=== PATIENT | male | born 1945 | race Caucasian/White ===

== ENCOUNTER 2018-08-06 09:15 | Emergency (ER) | payer MEDICARE, OTHER ==
[~2018-08-06] VITALS: Ht 180.3 cm; Wt 90.9 kg
[~2018-08-06 09:15] MED LIST: ASPI-1265 PO; CLON-529 PO; DOXY100T2 PO; NIFE60TA83 PO; PREN-139 PO; PROM25TA14 PO
[2018-08-06 09:24] VITALS: BP 133/57
[2018-08-06] MEDS ORDERED: HYDROcodone/acetaminophen 5mg/325mg tablet PO ONE ×2 (10:10→11:15)
[2018-08-06] MEDS ORDERED: LIDOcaine 1% 30ml preserv. free vial IJ ONE ×2 (10:45→11:25)
[2018-08-06] MEDS ORDERED: HYDR-3965 PO (12:29)
[2018-08-19] MEDS ORDERED: SIMV10TA2 PO (15:04)
[2018-08-19] MEDS ORDERED: POTASSIUM (15:04)
[2018-08-19] MEDS ORDERED: TUMERIC (15:04)
[2018-08-19] MEDS ORDERED: LISI1TAB13 PO (15:04)
[2018-08-19] MEDS ORDERED: MULT-933 PO (15:04)
[2018-08-19] MEDS ORDERED: GLUCOSAMINE (15:04)
== END 2018-08-06 13:00 | disposition home or self-care (01) ==
LOC: ER 09:15
DX: S52.591A Other fractures of lower end of right radius, initial encounter for closed fracture (principal); S52.611A Displaced fracture of right ulna styloid process, initial encounter for closed fracture; I10 Essential (primary) hypertension; Z88.0 Allergy status to penicillin; Z79.82 Long term (current) use of aspirin; Z79.899 Other long term (current) drug therapy; W01.198A Fall on same level from slipping, tripping and stumbling with subsequent striking against other object, initial encounter; Y93.89 Activity, other specified; Y92.89 Other specified places as the place of occurrence of the external cause; Y99.9 Unspecified external cause status
CPT/HCPCS: 29125; 73100; 73110; 99283; J3490

== ENCOUNTER 2018-08-13 09:03 | Outpatient (CLI) | payer MEDICARE, OTHER ==
[2018-08-13 09:17] VITALS: BP 110/56
== END 2018-08-13 10:17 | disposition home or self-care (01) ==
LOC: ORTHO 09:03
PROVIDERS: ATTEND Nurse Practitioner Family
DX: S52.591A Other fractures of lower end of right radius, initial encounter for closed fracture (principal); S52.614A Nondisplaced fracture of right ulna styloid process, initial encounter for closed fracture; I10 Essential (primary) hypertension; E78.00 Pure hypercholesterolemia, unspecified; I25.2 Old myocardial infarction; G47.30 Sleep apnea, unspecified; Z79.82 Long term (current) use of aspirin; Z88.0 Allergy status to penicillin; Z87.891 Personal history of nicotine dependence; W19.XXXA Unspecified fall, initial encounter; Y93.89 Activity, other specified; Y92.89 Other specified places as the place of occurrence of the external cause; Y99.8 Other external cause status
CPT/HCPCS: 73110; G0463

== ENCOUNTER 2018-08-21 12:46 | Day surgery (SDC) | payer MEDICARE, OTHER ==
[2018-08-19 15:24] LABS: BASOPHILS # (AUTO) 0.1 X10'3 (0-0.2); BASOPHILS % (AUTO) 0.7 % (0-1); EOSINOPHILS # (AUTO) 0.1 X10'3 (0-0.9); EOSINOPHILS % (AUTO) 1.9 % (0-6); LYMPHOCYTES # (AUTO) 2.3 X10'3 (1.1-4.8); LYMPHOCYTES % (AUTO) 31.1 % (21-51); MEAN CORPUSCULAR HEMOGLOBIN 29.8 PG (27.0-31.0); MEAN CORPUSCULAR HGB CONC 33.4 g/dL (33.0-36.5); MEAN CORPUSCULAR VOLUME 89.2 FL (78-98); MEAN PLATELET VOLUME 7.5 FL (7.4-10.4); MONOCYTES # (AUTO) 0.9 X10'3 (0-0.9); MONOCYTES % (AUTO) 11.5 % (2-12); NEUTROPHILS # (AUTO) 4.1 X10'3 (1.8-7.7); NEUTROPHILS % (AUTO) 54.8 % (42-75); PRE OP HEMATOCRIT 40.7 % (42.0-52.0); PRE OP HEMOGLOBIN 13.6 g/dL (14.0-17.9); PRE OP PLATELET COUNT 349 X10'3 (140-440); RED BLOOD COUNT 4.56 X10'6 (4.70-6.10); RED CELL DISTRIBUTION WIDTH 12.8 % (11.5-14.5)
[2018-08-19 15:46] LABS: ALBUMIN 3.7 G/DL (3.4-5.0); ALKALINE PHOSPHATASE 116 IU/L (46-116); BLOOD UREA NITROGEN 24 MG/DL (7-18); BUN/CREATININE RATIO 24.5 (5.4-32.0); CALCIUM 9.7 MG/DL (8.5-10.1); CHLORIDE 102 MMOL/L (99-107); CREATININE 0.98 MG/DL (0.60-1.10); PRE OP ALT 38 U/L (30-65); PRE OP ANION GAP 6 (8-16); PRE OP AST 28 U/L (10-37); PRE OP BILIRUB, TOTAL 0.2 MG/DL (0.0-1.0); PRE OP GLUCOSE 110 MG/DL (70-104); PRE OP SODIUM 137 MMOL/L (135-145); TOTAL CARBON DIOXIDE 28.6 MMOL/L (24-32); TOTAL PROTEIN 7.5 G/DL (6.4-8.2); eGFR 75 ML/MIN
[2018-08-21] VITALS (7 sets, daily range): BP systolic 139–153; BP diastolic 73–80
[~2018-08-21] VITALS: Ht 180.3 cm; Wt 95.3 kg
[~2018-08-21 12:46] MED LIST changes: +CLINDAmcin 900mg/NS 50ml IVPB 50 ML IV ONE; -CLON-529 PO; -DOXY100T2 PO; +LISI1TAB13 PO; +MULT-933 PO; -PREN-139 PO; +PRENATAL ONE T1 EACH PO; -PROM25TA14 PO; +SIMV10TA2 PO; +clindamycin-Cleocin 900mg/D5W 50 ML IV ONE; +famotidine 20mg tablet PO ONE; +ringers solution, lacted 1,000 ML IV SCH; +vancomycin inj 1,500 MG in normal saline 300ml IV soln IV ONE
[2018-08-21] MEDS ORDERED: ringers solution, lacted 1,000 ML IV SCH (13:44)
[2018-08-21] MEDS ORDERED: proCHLORperazine 10 MG/2 ml inj IV PRN (13:45)
[2018-08-21] MEDS ORDERED: meperidine/PF 25mg/ml syringe IV PRN ×3 (13:45)
[2018-08-21] MEDS ORDERED: ondansetron/PF 4mg/2ml inj IV PRN (13:45)
[2018-08-21] MEDS ORDERED: morphine 4 MG/ML inj SYRINge IV PRN ×2 (13:45)
[2018-08-21] MEDS ORDERED: bacitracin 15gm ointment TP ONE (14:00)
[2018-08-21] MEDS ORDERED: BUPIVAcaine/PF 2.5mg/ml (0.25%) 10ml vial ONE (14:01)
[2018-08-21] MEDS ORDERED: MIDAZolam 5mg/5ml vial ONE (15:28)
[2018-08-21] MEDS ORDERED: ROPIVAcaine 0.5% (5mg/ml) 30ml vial ONE (15:28)
[2018-08-21] MEDS ORDERED: fentaNYL/PF 50MCG/1 ML 2ML syringe ONE (15:28)
[2018-08-21] MEDS ORDERED: propofol 10mg/ml 20ml vial IV ONE (15:45)
[2018-08-21] MEDS ORDERED: LIDOcaine 1%/PF 5ML 10 MG/ML VIAL ONE (15:45)
[2018-08-21] MEDS ORDERED: desflurane 240ml liquid inh. IH ONE (15:45)
--- NOTE | 2018-08-21 17:25 | NUR ---
Received from OR via BED , accompanied by Anesthesiologist and report given by Anesthesiolgist. PATIENT WAKING UP, DENIES PAIN, V/S WNL, NEUROVASCULAR CHECKS INTACT, 20G PIV LUE , SPLINT/DRESSING TO RIGHT FOREARM CDI W/ COLD POWDER PACK AND W/ SCD ON.
--- NOTE | 2018-08-21 18:15 | NUR ---
PATIENT A&OX4, DENIES PAIN, V/S WNL, NEUROVASCULAR CHECKS INTACT, 20G PIV LUE D/C , SPLINT/DRESSING TO RIGHT FOREARM CDI W/ SLING AND COLD POWDER PACK AND W/ SCD OFF .I HAVE REVIEWED D/C INSTRUCTIONS WITH PATIENT AND FAMILY AND THEY HAVE VERBALIZED UNDERSTANDING. PATIENT GIVEN PAIN MEDS BY DANIKA PATIENT D/C HOME WITH ALL BELONGINGS AND FAMILY GAVE TRANSPORT HOME
== END 2018-08-21 18:15 | disposition home or self-care (01) ==
LOC: PAS 12:46
PROVIDERS: ATTEND Orthopaedic Surgery
DX: S52.591A Other fractures of lower end of right radius, initial encounter for closed fracture (principal); X58.XXXA Exposure to other specified factors, initial encounter; Y93.9 Activity, unspecified; Y92.9 Unspecified place or not applicable; Y99.9 Unspecified external cause status; Z88.0 Allergy status to penicillin; Z79.82 Long term (current) use of aspirin; I25.2 Old myocardial infarction; E78.00 Pure hypercholesterolemia, unspecified; G47.30 Sleep apnea, unspecified; F32.9 Major depressive disorder, single episode, unspecified; Z98.84 Bariatric surgery status
CPT/HCPCS: 25607; 36415; 71046; 73502; 80053; 82948; 85025; 93005; A6449; C1713; J2001; J2250; J2704; J3010; J3370; J3490; A7000; J2795; J7120

== ENCOUNTER 2019-01-06 15:02 | Emergency (ER) | payer MEDICARE, OTHER ==
[~2019-01-06] VITALS: Ht 180.3 cm; Wt 77.0 kg
[~2019-01-06 15:02] MED LIST changes: -CLINDAmcin 900mg/NS 50ml IVPB 50 ML IV ONE; -LISI1TAB13 PO; +LISI1TAB29 PO; -clindamycin-Cleocin 900mg/D5W 50 ML IV ONE; -famotidine 20mg tablet PO ONE; -ringers solution, lacted 1,000 ML IV SCH; -vancomycin inj 1,500 MG in normal saline 300ml IV soln IV ONE
[2019-01-06 15:50] LABS: BASOPHILS # (AUTO) 0.1 X10'3 (0-0.2); BASOPHILS % (AUTO) 0.5 % (0-1); EOSINOPHILS # (AUTO) 0.2 X10'3 (0-0.9); EOSINOPHILS % (AUTO) 1.7 % (0-6); HEMATOCRIT 28.8 % (42.0-52.0); HEMOGLOBIN 9.8 g/dl (14.0-17.9); LYMPHOCYTES # (AUTO) 2.1 X10'3 (1.1-4.8); LYMPHOCYTES % (AUTO) 19.6 % (21-51); MEAN CORPUSCULAR HGB CONC 34.2 g/dL (33.0-36.5); MEAN CORPUSCULAR VOLUME 90.7 FL (78-98); MEAN PLATELET VOLUME 7.5 FL (7.4-10.4); MONOCYTES % (AUTO) 9.5 % (2-12); NEUTROPHILS # (AUTO) 7.2 X10'3 (1.8-7.7); NEUTROPHILS % (AUTO) 68.7 % (42-75); PLATELET COUNT 325 X10'3 (140-440); RED BLOOD COUNT 3.17 X10'6 (4.70-6.10); RED CELL DISTRIBUTION WIDTH 13.2 % (11.5-14.5); WHITE BLOOD COUNT 10.5 X10'3 (4.5-11.0)
[2019-01-06 15:57] LABS: PARTIAL THROMBOPLASTIN TIME 32 SECONDS (22-32)
[2019-01-06 16:00] LABS: ALANINE AMINOTRANSFERASE 24 U/L (12-78); ALBUMIN 3.3 G/DL (3.4-5.0); ALBUMIN/GLOBULIN RATIO 0.9 (1.1-1.5); ALKALINE PHOSPHATASE 89 IU/L (46-116); ANION GAP 5 (8-16); ASPARTATE AMINO TRANSFERASE 15 U/L (10-37); BILIRUBIN,TOTAL 0.3 MG/DL (0.1-1.0); BLOOD UREA NITROGEN 40 MG/DL (7-18); BUN/CREATININE RATIO 36.4 (5.4-32.0); CALCIUM 8.7 MG/DL (8.5-10.1); CHLORIDE 103 MMOL/L (99-107); GLUCOSE 118 MG/DL (70-104); POTASSIUM 4.6 MMOL/L (3.5-5.1); SODIUM 136 MMOL/L (135-145); TOTAL CARBON DIOXIDE 27.6 MMOL/L (24-32); TOTAL PROTEIN 6.9 G/DL (6.4-8.2); eGFR 65 ML/MIN
[2019-01-06] MEDS ORDERED: pantoprazole 40mg Tablet.DR PO ONE (16:10)
[2019-01-06] MEDS ORDERED: acetaminophen 325mg tablet PO ONE (16:10)
[2019-01-06] MEDS ORDERED: famotidine 20mg tablet PO ONE (16:10)
[2019-01-06 16:34] LABS: CLARITY,URINE CLEAR (Clear); COLOR,URINE YELLOW (Yellow); GLUCOSE, URINE NEGATIVE (Neg); KETONES,URINE NEGATIVE (Neg); LEUKOCYTE ESTERASE ,URINE NEGATIVE (Neg); NITRITES, URINE NEGATIVE (Neg); OCCULT BLOOD,URINE NEGATIVE (Neg); PROTEIN,URINE NEGATIVE (Neg); UROBILINOGEN,URINE 0.2 E.U/dL (0.2-1.0)
[2019-01-06 16:36] LABS: UA COLLECTION TYPE URINAL
[2019-01-06 16:58] VITALS: BP 115/60
[2019-01-06] MEDS ORDERED: PANT-47 PO (17:09)
== END 2019-01-06 17:18 | disposition home or self-care (01) ==
LOC: ER 15:03
DX: R07.89 Other chest pain (principal); M54.5 Low back pain; E78.00 Pure hypercholesterolemia, unspecified; I10 Essential (primary) hypertension; I25.2 Old myocardial infarction; G47.30 Sleep apnea, unspecified; F32.9 Major depressive disorder, single episode, unspecified; Z88.0 Allergy status to penicillin; Z79.82 Long term (current) use of aspirin; Z79.899 Other long term (current) drug therapy
CPT/HCPCS: 36415; 71045; 80053; 81003; 84484; 85025; 85610; 85730; 93005; 99284

== ENCOUNTER 2020-12-14 16:00 | Emergency (ER) | payer MEDICARE, OTHER ==
[~2020-12-14] VITALS: Ht 180.3 cm; Wt 70.0 kg
[~2020-12-14 16:00] MED LIST changes: +PANT-47 PO
[2020-12-14 16:23] VITALS: BP 106/53
== END 2020-12-14 22:12 | disposition left against medical advice (07) ==
LOC: ER 16:00
DX: I10 Essential (primary) hypertension (principal); Z53.21 Procedure and treatment not carried out due to patient leaving prior to being seen by health care provider; R42 Dizziness and giddiness
CPT/HCPCS: 93005

== ENCOUNTER 2021-05-14 09:30 | Inpatient (IN) | payer MEDICARE, OTHER ==
[~2021-05-14] VITALS: Ht 180.3 cm; Wt 76.5 kg
[~2021-05-14 09:30] MED LIST changes: -LISI1TAB29 PO; +LISI1TAB53 PO
[2021-05-14 09:57] LABS: BASOPHILS % (AUTO) 0.8 % (0-1); EOSINOPHILS # (AUTO) 0.1 X10'3 (0-0.9); EOSINOPHILS % (AUTO) 1.7 % (0-6); HEMATOCRIT 37.4 % (42.0-52.0); HEMOGLOBIN 12.5 g/dl (14.0-17.9); LYMPHOCYTES # (AUTO) 1.9 X10'3 (1.1-4.8); LYMPHOCYTES % (AUTO) 32.5 % (21-51); MEAN CORPUSCULAR HEMOGLOBIN 30.1 PG (27.0-31.0); MEAN CORPUSCULAR HGB CONC 33.4 g/dL (33.0-36.5); MEAN CORPUSCULAR VOLUME 90.1 FL (78-98); MEAN PLATELET VOLUME 7.3 FL (7.4-10.4); MONOCYTES # (AUTO) 0.6 X10'3 (0-0.9); NEUTROPHILS # (AUTO) 3.2 X10'3 (1.8-7.7); PLATELET COUNT 264 X10'3 (140-440); RED BLOOD COUNT 4.15 X10'6 (4.70-6.10); RED CELL DISTRIBUTION WIDTH 15.9 % (11.5-14.5); WHITE BLOOD COUNT 5.8 X10'3 (4.5-11.0)
[2021-05-14] MEDS ORDERED: aspirin 81mg tab.chew PO ONE (10:00)
[2021-05-14 10:10] LABS: ALANINE AMINOTRANSFERASE 22 U/L (12-78); ALBUMIN 3.5 G/DL (3.4-5.0); ALBUMIN/GLOBULIN RATIO 1.1 (1.1-1.5); ALKALINE PHOSPHATASE 72 IU/L (46-116); ANION GAP 9 (8-16); ASPARTATE AMINO TRANSFERASE 26 U/L (10-37); BILIRUBIN,TOTAL 0.5 MG/DL (0.1-1.0); BLOOD UREA NITROGEN 12 MG/DL (7-18); BUN/CREATININE RATIO 10.3 (5.4-32.0); CALCIUM 9.4 MG/DL (8.5-10.1); CHLORIDE 105 MMOL/L (99-107); CREATININE 1.16 MG/DL (0.60-1.10); GLUCOSE 106 MG/DL (70-104); POTASSIUM 4.7 MMOL/L (3.5-5.1); SODIUM 139 MMOL/L (135-145); TOTAL CARBON DIOXIDE 25.4 MMOL/L (24-32); TOTAL PROTEIN 6.8 G/DL (6.4-8.2); eGFR 61 ML/MIN
[2021-05-14] MEDS ORDERED: acetaminophen 325mg tablet PO PRN ×2 (11:15)
[2021-05-14] MEDS ORDERED: HYDROcodone/acetaminophen 10/325mg tab PO PRN (11:15)
[2021-05-14] MEDS ORDERED: NIFEdipine XL 30mg tablet PO ONE (11:15)
[2021-05-14] MEDS ORDERED: PERFLUTREN PROTEIN-A MICROSPHR (Optison) 0.22 MG/ML 3ML VIAL IV PRN (11:15)
[2021-05-14] MEDS ORDERED: magnesium 4gm in 100ml NS 100 ML IV PRN (11:15)
[2021-05-14] MEDS ORDERED: potassium Cl 20 mEq SR tablet PO PRN ×2 (11:15)
[2021-05-14] MEDS ORDERED: HYDROcodone/acetaminophen 5mg/325mg tablet PO PRN (11:15)
[2021-05-14] MEDS ORDERED: ondansetron/PF 4mg/2ml inj IV PRN (11:15)
[2021-05-14] MEDS ORDERED: potassium CL 10mEq/100ml bag 100 ML IV PRN (11:15)
[2021-05-14] MEDS ORDERED: magnesium 2GM in 50ml NS 50 ML IV PRN (11:15)
[2021-05-14] MEDS ORDERED: GABA300C PO (11:30)
[2021-05-14] MEDS ORDERED: ROSU40TA22 PO (11:30)
[2021-05-14] MEDS ORDERED: LISI20TA28 PO (11:54)
[2021-05-14 15:00] VITALS: BP 127/60
[2021-05-14 18:00] VITALS: BP 124/64
[2021-05-14] MEDS: docusate sod 100mg capsule PO SCH (19:43)
[2021-05-14] MEDS: K and/or MAG REPLACEMENT MC SCH (19:48)
[2021-05-14] MEDS ORDERED: enoxaparin 40mg/0.4ml syringe SQ SCH (20:00)
[2021-05-14 22:00] VITALS: BP 105/58
[2021-05-15 02:00] VITALS: BP 107/54
[2021-05-15 06:00] VITALS: BP 106/51
[2021-05-15 06:52] LABS: BASOPHILS % (AUTO) 0.9 % (0-1); EOSINOPHILS # (AUTO) 0.1 X10'3 (0-0.9); EOSINOPHILS % (AUTO) 2.4 % (0-6); HEMATOCRIT 31.5 % (42.0-52.0); HEMOGLOBIN 10.9 g/dl (14.0-17.9); LYMPHOCYTES # (AUTO) 1.6 X10'3 (1.1-4.8); MEAN CORPUSCULAR HEMOGLOBIN 30.7 PG (27.0-31.0); MEAN CORPUSCULAR HGB CONC 34.5 g/dL (33.0-36.5); MEAN PLATELET VOLUME 7.9 FL (7.4-10.4); MONOCYTES # (AUTO) 0.5 X10'3 (0-0.9); NEUTROPHILS # (AUTO) 2.5 X10'3 (1.8-7.7); NEUTROPHILS % (AUTO) 51.7 % (42-75); PLATELET COUNT 210 X10'3 (140-440); RED BLOOD COUNT 3.53 X10'6 (4.70-6.10); RED CELL DISTRIBUTION WIDTH 15.4 % (11.5-14.5); WHITE BLOOD COUNT 4.8 X10'3 (4.5-11.0)
[2021-05-15 07:08] LABS: ALANINE AMINOTRANSFERASE 19 U/L (12-78); ALBUMIN 2.8 G/DL (3.4-5.0); ALKALINE PHOSPHATASE 61 IU/L (46-116); ANION GAP 7 (8-16); ASPARTATE AMINO TRANSFERASE 17 U/L (10-37); BILIRUBIN,TOTAL 0.4 MG/DL (0.1-1.0); BLOOD UREA NITROGEN 11 MG/DL (7-18); BUN/CREATININE RATIO 12.5 (5.4-32.0); CALCIUM 8.5 MG/DL (8.5-10.1); CHLORIDE 104 MMOL/L (99-107); CREATININE 0.88 MG/DL (0.60-1.10); GLUCOSE 90 MG/DL (70-104); MAGNESIUM 1.7 MG/DL (1.5-2.4); POTASSIUM 4.3 MMOL/L (3.5-5.1); SODIUM 140 MMOL/L (135-145); TOTAL CARBON DIOXIDE 28.7 MMOL/L (24-32); TOTAL PROTEIN 5.7 G/DL (6.4-8.2); eGFR 84 ML/MIN
[2021-05-15] MEDS: K and/or MAG REPLACEMENT MC SCH (08:00)
[2021-05-15] MEDS: docusate sod 100mg capsule PO SCH (08:25)
[2021-05-15] MEDS ORDERED: PANT-47 PO (10:48)
[2021-05-15] MEDS ORDERED: gabapentin 300mg capsule PO PRN (10:50)
--- NOTE | 2021-05-15 11:28 | NUR ---
Problems reprioritized. Patient report given, questions answered & plan of care reviewed with Elder CAN .
[2021-05-16] MEDS ORDERED: lisinopril 20mg tablet PO SCH (08:00)
[2021-05-16] MEDS ORDERED: atorvastatin 20mg tablet PO SCH (08:00)
== END 2021-05-15 13:50 | disposition home or self-care (01) | DRG 384 ==
LOC: ER 09:30 → ED HOLD 11:17 → PCU 3S 14:29
PROVIDERS: ADMIT Family Medicine; ATTEND Family Medicine
DX: K25.9 Gastric ulcer, unspecified as acute or chronic, without hemorrhage or perforation (principal); E78.00 Pure hypercholesterolemia, unspecified; E78.5 Hyperlipidemia, unspecified; G47.33 Obstructive sleep apnea (adult) (pediatric); F32.A Depression, unspecified; I10 Essential (primary) hypertension; Z96.652 Presence of left artificial knee joint; Z80.0 Family history of malignant neoplasm of digestive organs; Z80.42 Family history of malignant neoplasm of prostate; Z87.11 Personal history of peptic ulcer disease; I25.2 Old myocardial infarction; Z87.891 Personal history of nicotine dependence; Z98.84 Bariatric surgery status; Z79.899 Other long term (current) drug therapy; Z88.0 Allergy status to penicillin; Z79.82 Long term (current) use of aspirin
CPT/HCPCS: 36415; 71045; 80053; 83735; 83880; 84484; 85025; 93005; 93306; 99285; G0378; J1650; J2405

== ENCOUNTER 2021-08-19 18:41 | Emergency (ER) | payer MEDICARE, OTHER ==
[~2021-08-19] VITALS: Ht 180.3 cm; Wt 68.0 kg
[~2021-08-19 18:41] MED LIST changes: -ASPI-1265 PO; +GABA300C PO; -LISI1TAB53 PO; +LISI20TA28 PO; -MULT-933 PO; -NIFE60TA83 PO; -PRENATAL ONE T1 EACH PO; +ROSU40TA22 PO; -SIMV10TA2 PO
[2021-08-19 19:52] VITALS: BP 168/63
[2021-08-19] MEDS ORDERED: SULF1TAB49 PO (21:19)
[2021-08-19] MEDS ORDERED: acetaminophen 325mg tablet PO ONE (21:20)
[2021-08-19] MEDS ORDERED: sulfamethoxazole/trimethoprim DS (800/160mg) tablet PO ONE (21:20)
[2021-08-19] MEDS ORDERED: ondansetron 4mg rapidly disintigrating tab PO ONE (21:20)
== END 2021-08-19 21:33 | disposition home or self-care (01) ==
LOC: ER 18:41
DX: S01.511A Laceration without foreign body of lip, initial encounter (principal); E78.00 Pure hypercholesterolemia, unspecified; I10 Essential (primary) hypertension; I25.2 Old myocardial infarction; G47.30 Sleep apnea, unspecified; Z87.81 Personal history of (healed) traumatic fracture; Z72.89 Other problems related to lifestyle; Z88.0 Allergy status to penicillin; Z79.899 Other long term (current) drug therapy; W22.8XXA Striking against or struck by other objects, initial encounter; Y93.H2 Activity, gardening and landscaping; Y92.89 Other specified places as the place of occurrence of the external cause; Y99.8 Other external cause status
CPT/HCPCS: 99283; 99284

== ENCOUNTER 2024-06-29 11:56 | Emergency (ER) | payer MEDICARE, OTHER ==
[~2024-06-29] VITALS: Ht 175.3 cm; Wt 86.4 kg
[~2024-06-29 11:56] MED LIST changes: -ROSU40TA22 PO; +ROSU40TA89 PO
[2024-06-29] MEDS: oxyCODONE IR 5mg (immed. release) tablet PO ONE (13:13)
[2024-06-29] MEDS: morphine 4 MG/ML inj SYRINge IV ONE (14:31)
[2024-06-29] MEDS ORDERED: NAPR-56 PO (14:57)
[2024-06-29] MEDS ORDERED: CYCL-1 PO (14:57)
[2024-06-29 15:09] VITALS: BP 150/87; PULSE 61; O2SAT 98
[2024-06-29 15:15] VITALS: RESP 16
[2024-06-29] MEDS: ketorolac trometh 15mg/ml vial 15 MG/ML ML IM ONE (15:15)
[2024-06-29 15:18] VITALS: TEMP 97.3
== END 2024-06-29 16:55 | disposition home or self-care (01) ==
LOC: ER 11:57
DX: M54.59 Other low back pain (principal); R22.9 Localized swelling, mass and lump, unspecified; F32.A Depression, unspecified; E78.00 Pure hypercholesterolemia, unspecified; I10 Essential (primary) hypertension; G47.30 Sleep apnea, unspecified; I25.2 Old myocardial infarction; Z88.0 Allergy status to penicillin; Z79.899 Other long term (current) drug therapy; Z98.890 Other specified postprocedural states; W01.0XXA Fall on same level from slipping, tripping and stumbling without subsequent striking against object, initial encounter; Y93.89 Activity, other specified; Y92.89 Other specified places as the place of occurrence of the external cause; Y99.8 Other external cause status
CPT/HCPCS: 72131; 74176; 96372; 96374; 99285; J1885; J2270

== ENCOUNTER 2025-05-15 16:23 | Emergency (ER) | payer MEDICARE, OTHER ==
[~2025-05-15] VITALS: Ht 180.3 cm; Wt 85.5 kg
[~2025-05-15 16:23] MED LIST changes: +CYCL-1 PO
[2025-05-15 16:27] VITALS: BP 146/70; PULSE 80; RESP 16; O2SAT 96
--- NOTE | 2025-05-15 16:33 | Physician Documentation ---
History of Present Illness Chief Complaint: Abdominal Pain Stated Complaint: ABDOMINAL PAIN Time Seen by MD: 16:32 Primary Medical Doctor: DR ENGLISH Source: patient Mode of Arrival: POV Exam Limitations: no limitations HPI 79-year-old male with abdominal pain that is starts at the epigastric region and radiates downward for the past 3 weeks. Patient states pain is worse with eating. Patient states that at times the pain does radiate to his back. Medication Reconciliation Allergies: Coded Allergies: Penicillins (Verified Allergy, Mild, PT GETS A LUMP AT INJ SITE AND RUNS A HIGH FEVER, 06/29/24) Scheduled Bisacodyl (Dulcolax), 2 TAB PO UD Cyclobenzaprine* (Cyclobenzaprine*), 0.5 TAB PO Q8H Lisinopril (Lisinopril), 1 TAB PO DAILY, (Reported) Pantoprazole Sodium (PROTONIX tablet), 40 MG PO DAILY Psyllium Husk (with Sugar) (Metamucil Powder), 5 ML PO DAILY Rosuvastatin Calcium (Rosuvastatin Calcium), 1 TAB PO DAILY, (Reported) Scheduled PRN Gabapentin (Neurontin), 1 CAP PO HS PRN for ITCHING FROM SHINGLES, (Reported) Past Medical History Past Medical History: High Cholesterol, Hypertension, Myocardial Infarction, Sleep Apnea, Extremity Fracture, Depression Past Surgical History: orthopedic surgeries Patient History: FH: colon cancer MOTHER FH: prostate cancer FATHER Alcohol Use: Sober Drug Use: none Lives with: Spouse Lives In: Home Occupation: retired Review of Systems All Other Systems at this time: Reviewed and Negative Gastrointestinal: Reports: see HPI Physical Exam Vital Signs: RN Vital Signs have been reviewed: Yes, Temperature: 98.4, Source: Oral, Heart Rate: 80, Respiratory Rate: 16, BP: 146/70, Pulse Oximetry: 96, Weight: 85.500 Oxygen Flow Rate: 0 Physical Exam General: Alert, no apparent distress. HEENT: moist mucous membranes. Neck: Full range of motion. Respiratory: No respiratory distress speaking in full sentences Chest: No accessory muscle use. Cardiovascular: Appears well perfused Gastrointestinal: Mild tenderness to palpate the epigastric region no CVA ten derness no rebound tenderness or masses. Good bowel sounds Neurologic: Oriented x4. Psychiatric: Normal mood and affect. Skin: Normal color, warm and dry. No edema, no ecchymosis. Progress Results/Orders Results/Orders Vital Signs 05/15/25 16:27 Temp 98.4 Pulse 80 Resp 16 B/P (MAP) 146/70 Pulse Ox 96 O2 Flow Rate 0 EKG/XRAY/CT/US/VASC/MRI CT : Impression COMPUTERIZED TOMOGRAPHY ABDOMEN AND PELVIS WITHOUT CONTRAST REASON FOR EXAM: Abdominal Pain COMPARISON: CT CT ABDOMEN PELVIS on DOS: 06/29/24 TECHNIQUE: The exam was performed on a Multidetector scanner. Spiral scans were acquired from the diaphragm to the symphysis pubis without IV contrast. 2-D coronal and sagittal reformatted images were provided. Radiation optimization: All CT scans at this facility use at least one of these dose optimization techniques: Automated exposure control mA and/or kV adjustment per patient size (includes targeted exams where dose is matched to clinical indication) or iterative reconstruction. RADIATION DOSE: CTDI: 21 mGy DLP: 146 mGy-cm FINDINGS: The visualized lung bases are grossly clear of airspace disease. There is a 7 mm calcified granuloma at the base of the right lower lobe consistent with prior granulomatous disease. There is no pleural effusion. There is no pericardial effusion. The spleen is not enlarged. The liver is within normal limits for size and contour. There are a few tiny calcified gallstones at the gallbladder fundus. The gallbladder is not significantly distended. There is no pericholecystic edema. Evaluation of the abdominal organs is suboptimal in the absence of intravenous contrast. Unenhanced appearance of the pancreas is grossly unremarkable. There is gastric bypass anatomy. The adrenal glands appear grossly normal. The kidneys are similar in size. There is no hydronephrosis of either kidney. No renal, ureteral, or bladder calculus is identified. The prostate is enlarged and indents the posterior wall of the bladder. The urinary bladder appears otherwise unremarkable. There is mild circumferential rectal wall thickening suggestive of proctitis. The sigmoid colon is significantly redundant and loops up to the right hemidiaphragm. There is moderate gas within the distal rectosigmoid without evidence of large bowel obstruction. The colonic stool burden is moderate. There is ventral abdominal wall repair mesh. There is a small fat containing right inguinal hernia. The appendix is normal. There is no Pathologic distention of the small bowel. There is no abdominal aortic aneurysm. There is extensive atherosclerosis. No free fluid is identified. No acute osseous abnormality is identified. IMPRESSION: Moderate colonic stool burden. Correlate clinically for constipation. The sigmoid colon is significantly redundant, however, there is no evidence of torsion or large bowel obstruction. Mild circumferential rectal wall thickening suggestive of proctitis. Correlate clinically with history and with physical exam. Cholelithiasis without CT evidence of acute cholecystitis. Normal appendix. Medical Decision Making Additional information obtaine: N/A Findings Patient is experiencing abdominal pain after eating that is generalized abdominal pain. Patient has issue with chronic constipation especially when he is taking iron tablets. Patient is on iron for chronic anemia does have a primary care provider appointment on Sunday. Discussed labs which were reassuring vital signs reassuring abdominal exam unremarkable for any significant findings no rebound tenderness or masses mild tenderness with palpation. No CVA tenderness. Patient's CT was evaluated as well showing moderate colonic stool burden indicating some constipation which correlates with patient's subjective accounts. Discussed close follow up with primary care and medication to help with stool burden. Patient would like to be discharged. Differential Dx:Considerations: AAA, Angina/IA, Aortic dissection, Appendicitis, Bowel obstruction, Constipation, Gastritis/PUD, Inflammatory BD, Urinary tract infection Departure Time of Disposition: 18:50 Disposition: HOME / SELF CARE / HOMELESS Impression: Primary Impression: Abdominal pain Additional Impression: Constipation Condition: Stable Discharge Instructions: Chronic Constipation Additional Instructions: Maintain appointment with primary care provider on Sunday. Take medication as prescribed Referrals: NO PRIMARY CARE PROVIDER (PCP) Prescriptions Bisacodyl (Dulcolax) 5 Mg Tablet.dr 2 TAB PO UD for constipation for 1 Day, #2 TAB 0 Refills Prov: CADY DURAN NP 05/15/25 Psyllium Husk (with Sugar) (Metamucil Powder) 3.4 Gram/12 Gram Powder 5 ML PO DAILY for 30 Days, #150 ML 0 Refills Prov: CADY DURAN NP 05/15/25 Education Educated: Patient Educated regarding: diagnosis, treatment, need for follow up Signature Scribe Signature: No scribe Attestation: The note accurately reflects work and decisions made by me.Cady Duran - DHEERAJ 05/15/25 16:33 CADY DURAN NP May 15, 2025 16:33
[2025-05-15 17:05] LABS: MEAN PLATELET VOLUME 7.6 FL (7.4-10.4); RED CELL DISTRIBUTION WIDTH 13.2 % (11.5-14.5)
[2025-05-15 17:21] LABS: CREATININE 1.07 MG/DL (0.60-1.10); TOTAL CARBON DIOXIDE 28.5 MMOL/L (24-32); eCRCL 59 ML/MIN; eGFR 66 ML/MIN
--- NOTE | 2025-05-15 17:40 | RADIOLOGY REPORT ---
COMPUTERIZED TOMOGRAPHY ABDOMEN AND PELVIS WITHOUT CONTRAST REASON FOR EXAM: Abdominal Pain COMPARISON: CT CT ABDOMEN PELVIS on DOS: 06/29/24 TECHNIQUE: The exam was performed on a Multidetector scanner. Spiral scans were acquired from the diaphragm to the symphysis pubis without IV contrast. 2-D coronal and sagittal reformatted images were provided. Radiation optimization: All CT scans at this facility use at least one of these dose optimization techniques: Automated exposure control mA and/or kV adjustment per patient size (includes targeted exams where dose is matched to clinical indication) or iterative reconstruction. RADIATION DOSE: CTDI: 21 mGy DLP: 146 mGy-cm FINDINGS: The visualized lung bases are grossly clear of airspace disease. There is a 7 mm calcified granuloma at the base of the right lower lobe consistent with prior granulomatous disease. There is no pleural effusion. There is no pericardial effusion. The spleen is not enlarged. The liver is within normal limits for size and contour. There are a few tiny calcified gallstones at the gallbladder fundus. The gallbladder is not significantly distended. There is no pericholecystic edema. Evaluation of the abdominal organs is suboptimal in the absence of intravenous contrast. Unenhanced appearance of the pancreas is grossly unremarkable. There is gastric bypass anatomy. The adrenal glands appear grossly normal. The kidneys are similar in size. There is no hydronephrosis of either kidney. No renal, ureteral, or bladder calculus is identified. The prostate is enlarged and indents the posterior wall of the bladder. The urinary bladder appears otherwise unremarkable. There is mild circumferential rectal wall thickening suggestive of proctitis. The sigmoid colon is significantly redundant and loops up to the right hemidiaphragm. There is moderate gas within the distal rectosigmoid without evidence of large bowel obstruction. The colonic stool burden is moderate. There is ventral abdominal wall repair mesh. There is a small fat containing right inguinal hernia. The appendix is normal. There is no Pathologic distention of the small bowel. There is no abdominal aortic aneurysm. There is extensive atherosclerosis. No free fluid is identified. No acute osseous abnormality is identified. IMPRESSION: Moderate colonic stool burden. Correlate clinically for constipation. The sigmoid colon is significantly redundant, however, there is no evidence of torsion or large bowel obstruction. Mild circumferential rectal wall thickening suggestive of proctitis. Correlate clinically with history and with physical exam. Cholelithiasis without CT evidence of acute cholecystitis. Normal appendix.
[2025-05-15] MEDS ORDERED: PSYL575P22 PO (18:54)
[2025-05-15] MEDS ORDERED: BISA-155 PO (18:54)
[2025-05-15 19:01] VITALS: TEMP 98.4
[2025-05-15] MEDS: lactulose 20gm/30ml cup PO ONE (19:08)
== END 2025-05-15 19:09 | disposition home or self-care (01) ==
LOC: ER 16:23
DX: R10.13 Epigastric pain (principal); K59.00 Constipation, unspecified; E78.00 Pure hypercholesterolemia, unspecified; I25.2 Old myocardial infarction; I10 Essential (primary) hypertension; F32.A Depression, unspecified; G47.30 Sleep apnea, unspecified; Z88.0 Allergy status to penicillin; Z79.899 Other long term (current) drug therapy; Z98.890 Other specified postprocedural states
CPT/HCPCS: 36415; 74176; 80053; 83690; 85025; 99284